=== PATIENT | female | born 1995 | race Caucasian/White ===

== ENCOUNTER → 2016-12-19 | Outpatient (CLI) | payer OTHER ==
[~2016-12-19] MED LIST: AMOXICILLIN500 MG PO; AMOXICILLIN875 MG PO; ATARAX25 MG PO; BACTRIM DS 8001 TA1 PO; MIRALAX POWDER17 G1 PO; NAPROSYN500 MG PO; NKHM; PAXIL30 M2 PO; PREDNISONE20 MG PO; Peridex 473 ML473 ML PO; SEPTRA DS 800 M1 TAB PO; VICODIN 500 MG-1 TAB PO; ZOFRAN ODT4 MG SL
== END | disposition home or self-care (01) ==
LOC: US 12-15 11:30
DX: O34.81 Maternal care for other abnormalities of pelvic organs, first trimester (principal); N83.12 Corpus luteum cyst of left ovary; Z3A.01 Less than 8 weeks gestation of pregnancy

== ENCOUNTER 2017-04-07 18:55 | Emergency (ER) | payer OTHER ==
[~2017-04-07] VITALS: Ht 165.1 cm; Wt 106.6 kg
[2017-04-07 19:03] VITALS: BP 121/66
[2017-04-07] MEDS ORDERED: AMOXICILLIN500 M2 PO (19:21)
== END 2017-04-07 20:39 | disposition home or self-care (01) ==
LOC: ED 18:55
DX: O26.892 Other specified pregnancy related conditions, second trimester (principal); H65.93 Unspecified nonsuppurative otitis media, bilateral; Z3A.22 22 weeks gestation of pregnancy; Z90.49 Acquired absence of other specified parts of digestive tract; Z79.899 Other long term (current) drug therapy

== ENCOUNTER 2017-10-22 20:35 | Emergency (ER) | payer OTHER ==
[~2017-10-22] VITALS: Ht 167.6 cm; Wt 104.3 kg
--- NOTE | ~2017-10-22 | EKG ---
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
[~2017-10-22 20:35] MED LIST changes: +AMOXICILLIN500 M2 PO
[2017-10-22 21:01] LABS: BILIRUBIN NEGATIVE (NEGATIVE); BLOOD 2+ (NEGATIVE); CLARITY CLEAR (CLEAR); COLOR YELLOW (YELLOW); GLUCOSE NEGATIVE (NEGATIVE); KETONE NEGATIVE (NEGATIVE); LEUKO ESTERASE NEGATIVE (NEGATIVE); NITRITE NEGATIVE (NEGATIVE); PH 6.5 (5.0-9.0); SPECIFIC GRAVITY <= 1.005 (1.005-1.030); UROBILINOGEN 0.2 E.U./dl (0.2-1.0)
[2017-10-22 21:10] LABS: BASO % 0.3 % (0.0-1.0); EOS # 0.1 10*3/uL (0.0-0.4); EOS % 1.2 % (1.0-4.0); HEMATOCRIT 34.7 % (37.0-47.0); HEMOGLOBIN 11.2 g/dl (12.0-16.0); LYMPH # 2.9 10*3/uL (1.3-4.4); LYMPH % 27.8 % (27.0-41.0); MEAN CELL VOLUME 86.5 fl (81.0-99.0); MEAN CORPUSCULAR HGB 27.9 pg (27.0-31.0); MEAN CORPUSCULAR HGB CONC 32.3 g/dl (33.0-37.0); MEAN PLATELET VOLUME 10.3 fl (9.6-12.3); MONO # 0.6 10*3/uL (0.1-1.0); MONO % 5.9 % (3.0-9.0); NEUT # 6.7 10*3/uL (2.3-7.9); NEUT % 64.5 % (47.0-73.0); PLATELET COUNT AUTOMATED 270 10*3/uL (130-400); RED BLOOD COUNT 4.01 10*6/uL (4.10-5.10); RED CELL DISTRI WIDTH 13.2 % (0-14.5); WHITE BLOOD COUNT 10.3 10*3/uL (4.8-10.8)
[2017-10-22 21:26] LABS: ACT PARTIAL THROMBO TIME 27.5 SECONDS (20.8-31.5); INTERNATIONAL NORM RATIO 0.9 (2.0-3.5)
[2017-10-22 21:28] LABS: EPITHELIAL CELLS 0-2; WBC 0-2 wbc/hpf (0-5)
[2017-10-22 21:29] LABS: ALBUMIN 3.4 gm/dl (3.1-4.5); ALKALINE PHOSPHATASE 83 U/L (45-117); BUN 10 mg/dl (7-24); CHLORIDE 106 mmol/L (98-107); CREATININE 0.82 mg/dL (0.55-1.02); POTASSIUM 3.8 mmol/L (3.5-5.1); SGOT/AST 15 IU/L (3-35); SGPT/ALT 33 U/L (12-78); SODIUM 142 mmol/L (136-145); TOTAL PROTEIN 7.3 gm/dL (6.4-8.2)
[2017-10-22 21:32] LABS: BETA-HCG, QUANT < 1.0 mIU/mL (1-3); TROPONIN I < 0.015 ng/ml (<0.045)
[2017-10-22 23:40] VITALS: BP 107/79
== END 2017-10-22 23:58 | disposition home or self-care (01) ==
LOC: ED 20:35
PROVIDERS: Student in an Organized Health Care Education/Training Program
DX: R06.02 Shortness of breath (principal); R10.9 Unspecified abdominal pain; R07.89 Other chest pain; F17.200 Nicotine dependence, unspecified, uncomplicated; Z79.899 Other long term (current) drug therapy

== ENCOUNTER → 2020-11-07 | Outpatient (CLI) | payer OTHER ==
[2020-11-08 05:06] LABS: HEPATITIS B SURFACE AB Non Reactive (.)
[2020-11-08 12:07] LABS: VARICELLA-ZOSTER IGM AB <0.91 index (0.00-0.90)
[2020-11-08 17:06] LABS: MUMPS ANTIBODIES, IGG 73.3 AU/mL (Immune >10.9); RUBEOLA AB IGG 92.3 AU/mL (Immune >16.4)
== END | disposition home or self-care (01) ==
LOC: LAB 13:59
PROVIDERS: ATTEND Nurse Practitioner Women's Health
DX: Z11.59 Encounter for screening for other viral diseases (principal); Z02.0 Encounter for examination for admission to educational institution; Z92.29 Personal history of other drug therapy

== ENCOUNTER 2021-03-26 12:46 | Emergency (ER) | payer OTHER ==
[~2021-03-26] VITALS: Ht 165.1 cm; Wt 97.5 kg
[2021-03-26 12:50] VITALS: BP 127/72
== END 2021-03-26 14:17 | disposition left against medical advice (07) ==
LOC: ED 12:46
DX: Z53.21 Procedure and treatment not carried out due to patient leaving prior to being seen by health care provider (principal)

== ENCOUNTER → 2021-03-26 | Outpatient (CLI) | payer OTHER | END | disposition home or self-care (01) | LOC: US 17:00 | PROVIDERS: ATTEND Nurse Practitioner Women's Health | DX: N83.291 Other ovarian cyst, right side (principal); N93.9 Abnormal uterine and vaginal bleeding, unspecified ==

== ENCOUNTER → 2021-04-02 | Outpatient (CLI) | payer OTHER | END | disposition home or self-care (01) | LOC: COVID19 16:02 | PROVIDERS: ATTEND Internal Medicine | DX: U07.1 COVID-19 (principal) ==